=== PATIENT | female | born 1995 | race Caucasian/White ===

== ENCOUNTER 2018-12-23 22:36 | Emergency (ER) | payer OTHER, SELFPAY ==
[2018-12-23 22:42] VITALS: BP 150/91; PULSE 126; RESP 20; TEMP 36.6; O2SAT 100; BMI 23.9
[2018-12-23 23:07] VITALS: BP 131/80; PULSE 98; RESP 19; O2SAT 100
[2018-12-23 23:33] LABS: Add Manual Diff / Slide Review NO; Basophils Absolute Auto 100 /uL (0-100); Basophils Percent Auto 0.7 % (0-2); Eosinophils Absolute Auto 400 /uL (0-450); Eosinophils Percent Auto 3.6 % (2-4); Hematocrit 41.7 % (36-46); Hemoglobin 13.7 g/dL (12.0-16.0); Lymphocytes Absolute Auto 2400 /uL (1100-4500); Lymphocytes Percent Auto 20.2 % (25-40); Mean Corpuscular HGB Conc 32.9 % (30-36); Mean Corpuscular Volume 88.2 fL (80-100); Monocytes Absolute Auto 800 /uL (0-900); Monocytes Percent Auto 6.8 % (3-14); Neutrophils Absolute Auto 8300 /uL (1500-7000); Neutrophils Percent Auto 68.7 % (50-75); Platelet Count 252 X10^3/uL (150-400); Red Blood Cell Count 4.73 X10^6/uL (4.0-5.2); Red Cell Distribution Width 13.4 % (11.6-14.8); White Blood Cell Count 12.1 X10^3/uL (4.5-11.0)
[2018-12-23 23:39] LABS: Alanine Aminotransferase 24 IU/L (9-52); Albumin 4.8 g/dL (3.5-5.0); Albumin Globulin Ratio 1.5 (1.0-2.8); Alkaline Phosphatase 77 U/L (38-126); Aspartate Aminotransferase 23 IU/L (14-36); BUN Creatinine Ratio 21.4 (6-22); Bilirubin Total 0.4 mg/dL (0.2-1.3); Blood Urea Nitrogen 15 mg/dL (7-17); Calcium 9.9 mg/dL (8.4-10.2); Carbon Dioxide 24 mmol/L (22-32); Chloride 104 mmol/L (98-107); Creatine Kinase 68 U/L (30-135); Estimated Glomerular Filt Rate > 60.0 mL/min (>60); Globulin 3.3 g/dL (1.7-4.1); Glucose 108 mg/dL (70-100); HEMOLYSIS 19 (0-50); Potassium 3.6 mmol/L (3.4-5.1); Sodium 139 mmol/L (137-145); Total Protein 8.1 g/dL (6.3-8.2)
[2018-12-23] MEDS: SODIUM CHLORIDE 0.9% 1,000 ML 1000 ML IV (23:43)
[2018-12-23] MEDS: ONDANSETRON 4 MG/2 ML INJ IV (23:43)
[2018-12-23 23:49] VITALS: BP 119/71; PULSE 93; RESP 22; O2SAT 100
[2018-12-23 23:50] LABS: Troponin I < 0.012 ng/mL (0.01-0.034)
[2018-12-23 23:53] LABS: Influenza A and B by PCR Rapid Negative (Negative)
--- NOTE | 2018-12-23 23:54 | DI.RAD.S_ITS ---
PROCEDURE: XR CHEST 1V INDICATIONS: chest pain TECHNIQUE: One view of the chest was acquired. COMPARISON: None. FINDINGS: Surgical changes and devices: None. Lungs and pleura: Lungs are clear. No pleural effusions or pneumothorax. Mediastinum: Mediastinal contours appear normal. Heart size is normal. Bones and chest wall: No suspicious bony lesions. Overlying soft tissues appear unremarkable. IMPRESSION: No acute disease Dictated by: Dylan Wiseman M.D. on 12/24/2018 at 8:04 Approved by: Dylan Wiseman M.D. on 12/24/2018 at 8:06
--- NOTE | 2018-12-23 23:55 | ED.ARRPALP ---
HPI - Arrhythmia/Palpitations General Chief Complaint: Arrhythmia/Palpitations Stated Complaint: THROWING UP OUT OF IT Time Seen by Provider: 12/23/18 22:57 Source: patient Mode of arrival: ambulatory Limitations: no limitations History of Present Illness HPI narrative: patient is a 23-year-old female who presents with heart palpitations. His he says she feels like she has had head follow all day. She does drink caffeine diet Coke and coffee throughout the day. This never happens to her. She denies drinking any extra. She does have some shortness of breath. She had numbness in her left hand earlier today. She denies any fever or chills. She has noted to be tachycardic in the ED. Duration: constant Related Data Previous Rx's Medication Instructions Recorded sulfamethoxazole-trimethoprim 1 tab PO BID 5 Days #10 tab 12/24/18 [Bactrim DS] Allergies Allergy/AdvReac Type Severity Reaction Status Date / Time latex Allergy Rash Verified 12/23/18 22:48 Review of Systems Review of Systems ROS Unobtainable: All systems reviewed & are unremarkable except as noted in HPI and below Constitutional Denies chills, Denies fever(s), Denies lethargy and Denies weakness Cardiovascular Reports chest pain, Denies syncope, Reports rapid heart rate, Reports lightheadedness, Denies dyspnea and Denies dyspnea on exertion Respiratory Denies cough, Denies dyspnea, Denies dyspnea on exertion and Denies wheezing Gastrointestinal Gastrointestinal: Denies abdominal pain, Denies change in bowel habits, Denies diarrhea, Denies nausea and Denies vomiting Genitourinary Denies hematuria, Denies flank pain, Denies urinary incontinence and Denies urinary urgency Musculoskeletal Denies back pain, Denies muscle weakness, Denies numbness and Denies tingling Integumentary/Breasts Denies pruritus, Denies erythema, Denies rash and Denies wounds Neurologic Denies syncope, Denies numbness, Denies tingling and Denies weakness Allergic/Immunologic Denies wheezing [facility] Medical History Patient denies significant medical history (Acute) Social History Smoking Status: Never smoker Social History Smoking Status: Never smoker Exam Initial Vital Signs Initial Vital Signs: Vital Signs Temperature 97.9 F 12/23/18 22:42 Pulse Rate 126 H 12/23/18 22:42 Respiratory Rate 20 12/23/18 22:42 Blood Pressure 150/91 H 12/23/18 22:42 Pulse Oximetry 100 12/23/18 22:42 GENERAL: alert well-appearing young female no acute distress HEENT: Head atraumatic,EOMI, pupils reactive CARDIOVASCULAR: tachycardic regular no murmur RESPIRATORY: Breath sounds equal bilaterally, no wheezes rales or rhonchi. ABDOMEN: Soft, nontender. Normoactive bowel sounds all 4 quadrants. No guarding or rebound. EXTREMITIES: Normal range of motion, no clubbing or edema. Neurovascularly intact NEUROLOGICAL: Alert and oriented x4.Normal gait and speech. Cranial nerves II through XII grossly intact. orchid worker strength equal bilaterally SKIN: Warm, dry, no laceration, no petechiae, no rashes or lesions. Scores PERC Score Age greater than or equal to 50 years: No Heart rate greater than or equal to 100 bpm: Yes Room Air O2 Sat less than 95%: No Unilateral leg swelling: No Recent trauma or surgery: No Hemoptysis: No Prior PE or DVT: No Hormone Use: No Total PERC Score: 1 Course Orders Ordered: ED Orders 12/23/18 23:15 Complete Blood Count AUTO DIFF Stat Comprehensive Metabolic Panel Stat D Dimer Stat Influenza A and B by PCR Rapid Stat Troponin & CK Cardiac Panel Stat 12/23/18 23:54 XR chest 1V Stat 12/24/18 00:00 Thyroid Stimulating Hormone Stat 12/24/18 01:20 Urine Culture Stat Urine Microscopic Stat Discontinued Medications Sodium Chloride (Normal Saline 0.9%) 1,000 mls @ 1,000 mls/hr IV BOLUS ONE Stop: 12/24/18 00:26 Last Infusion: 12/24/18 00:55 Dose: 0 mls/hr Admin: 12/23/18 23:43 Dose: 1,000 mls/hr Ketorolac Tromethamine (Toradol) 30 mg IV NOW ONE Stop: 12/23/18 23:55 Last Admin: 12/24/18 00:00 Dose: 30 mg Ondansetron HCl (Zofran) 4 mg IV NOW ONE Stop: 12/23/18 23:29 Last Admin: 12/23/18 23:43 Dose: 4 mg Trimethoprim/Sulfamethoxazole (Bactrim Ds Prepack) 1 bottle MISC SEEINSTR ONE Stop: 12/24/18 01:24 Last Admin: 12/24/18 01:45 Dose: 1 bottle Vital Signs - 8 hr 12/23/18 22:42 12/23/18 23:07 12/23/18 23:49 Temperature 97.9 F Pulse Rate 126 H 98 H 93 H Respiratory Rate 20 19 22 Blood Pressure 150/91 H Blood Pressure [Left Arm] 131/80 119/71 Pulse Oximetry 100 100 100 12/24/18 01:06 12/24/18 01:52 Temperature Pulse Rate 90 92 H Respiratory Rate 12 16 Blood Pressure 125/75 Blood Pressure [Left Arm] 114/54 L Pulse Oximetry 99 99 MDM - Arrhythmia/Palpitations Lab Data Attestation: I reviewed the patient's lab results. Result diagrams: 12/23/18 23:15 12/23/18 23:15 Lab Results 12/23/18 12/23/18 12/23/18 Range/Units 23:15 23:15 23:15 WBC 12.1 H (4.5-11.0) X10^3/uL RBC 4.73 (4.0-5.2) X10^6/uL Hgb 13.7 (12.0-16.0) g/dL Hct 41.7 (36-46) % MCV 88.2 (80-100) fL MCH 29.0 (26-34) PG MCHC 32.9 (30-36) % RDW 13.4 (11.6-14.8) % Plt Count 252 (150-400) X10^3/uL Neut % (Auto) 68.7 (50-75) % Lymph % (Auto) 20.2 L (25-40) % [place] % (Auto) 6.8 (3-14) % Eos % (Auto) 3.6 (2-4) % Baso % (Auto) 0.7 (0-2) % Neut # (Auto) 8300 H (9702-6615) /uL Lymph # (Auto) 2400 (7102-1607) /uL [place] # (Auto) 800 (0-900) /uL Eos # (Auto) 400 (0-450) /uL Baso # (Auto) 100 (0-100) /uL D-Dimer (<230) ng/mL Sodium 139 (137-145) mmol/L Potassium 3.6 (3.4-5.1) mmol/L Chloride 104 (98-107) mmol/L Carbon Dioxide 24 (22-32) mmol/L BUN 15 (7-17) mg/dL Creatinine 0.70 (0.52-1.04) mg/dL Estimated GFR > 60.0 (>60) mL/min BUN/Creatinine Ratio 21.4 (6-22) Glucose 108 H (70-100) mg/dL Calcium 9.9 (8.4-10.2) mg/dL Total Bilirubin 0.4 (0.2-1.3) mg/dL AST 23 (14-36) IU/L ALT 24 (9-52) IU/L Alkaline Phosphatase 77 (38-126) U/L Total Creatine Kinase 68 (30-135) U/L CK-MB (CK-2) TNP CK-MB (CK-2) Rel Index TNP Troponin I < 0.012 (0.01-0.034) ng/mL Total Protein 8.1 (6.3-8.2) g/dL Albumin 4.8 (3.5-5.0) g/dL Globulin 3.3 (1.7-4.1) g/dL Albumin/Globulin Ratio 1.5 (1.0-2.8) TSH (0.47-4.68) uIU/mL Urine RBC (0-5/HPF) Urine WBC (0-5/HPF) Ur Squamous Epith Cells Urine Bacteria (None) Ur Culture Indicated? Influenza A & B (PCR) Negative (Negative) 12/23/18 12/23/18 12/24/18 Range/Units 23:15 23:15 01:20 WBC (4.5-11.0) X10^3/uL RBC (4.0-5.2) X10^6/uL Hgb (12.0-16.0) g/dL Hct (36-46) % MCV (80-100) fL MCH (26-34) PG MCHC (30-36) % RDW (11.6-14.8) % Plt Count (150-400) X10^3/uL Neut % (Auto) (50-75) % Lymph % (Auto) (25-40) % [place] % (Auto) (3-14) % Eos % (Auto) (2-4) % Baso % (Auto) (0-2) % Neut # (Auto) (8189-6195) /uL Lymph # (Auto) (7459-7352) /uL [place] # (Auto) (0-900) /uL Eos # (Auto) (0-450) /uL Baso # (Auto) (0-100) /uL D-Dimer 383 H (<230) ng/mL Sodium (137-145) mmol/L Potassium (3.4-5.1) mmol/L Chloride (98-107) mmol/L Carbon Dioxide (22-32) mmol/L BUN (7-17) mg/dL Creatinine (0.52-1.04) mg/dL Estimated GFR (>60) mL/min BUN/Creatinine Ratio (6-22) Glucose (70-100) mg/dL Calcium (8.4-10.2) mg/dL Total Bilirubin (0.2-1.3) mg/dL AST (14-36) IU/L ALT (9-52) IU/L Alkaline Phosphatase (38-126) U/L Total Creatine Kinase (30-135) U/L CK-MB (CK-2) CK-MB (CK-2) Rel Index Troponin I (0.01-0.034) ng/mL Total Protein (6.3-8.2) g/dL Albumin (3.5-5.0) g/dL Globulin (1.7-4.1) g/dL Albumin/Globulin Ratio (1.0-2.8) TSH 3.41 (0.47-4.68) uIU/mL Urine RBC 1-5/hpf (0-5/HPF) Urine WBC 1-5/hpf (0-5/HPF) Ur Squamous Epith Cells 1-5 /hpf Urine Bacteria Many (>30) H (None) Ur Culture Indicated? Specimen cultured Influenza A & B (PCR) (Negative) Point of Care Testing Test Results Negative Urine Dip Bedside Urine Glucose Negative Bedside Urine Bilirubin - Negative Bedside Urine Ketone - Negative Urine Specific [place] 1.020 Bedside Urine Occult Blood +/- Bedside Urine pH 6.0 Bedside Urine Protein - Negative Bedside Urine Urobilinogen +/- 1mg Bedside Urine Nitrite + Positive Bedside Urine Leukocytes +/- 15 Esterase ECG Data Attestation: I personally reviewed and interpreted this ECG as follows: Prior ECG tracings: not available for review Interpretation: sinus tachycardia rate 110 MDM Narrative Medical decision making narrative: patient's heart rate did actually improve with IV fluids and Toradol. His she does have leukocytes and bacteria in her urine. At this time will treat her for UTI think this is more likely rather than PE. D-dimer is less than 500 is and PERC is low. Patient states that she does have a urinary frequency and has for the last 2 days he denies any dysuria Discharge Plan Departure Patient Disposition: Home Clinical Impression: Palpitations UTI (urinary tract infection) Qualifiers: Urinary tract infection type: acute cystitis Hematuria presence: with hematuria Qualified Code(s): N30.01 - Acute cystitis with hematuria Discharge Date/Time: 12/24/18 01:53 Interventions: ED Discharge Assessment Last Done: 12/24/18 01:52 Instructions: DI for Palpitations Activity Restrictions/Additional Instructions: *You have been diagnosed with palpitations, UTI *What to do: thyroid was noted to be a little elevated recommend having it rechecked. blood work and x-ray otherwise are reassuring. Also consider decreasing caffeine intake *Continue to take medications as directed - Bactrim 1 tablet twice a day for 5 days *Follow up with your primary care provider in 2-3 days *Return to ER if you should have increasing chest pain and passing out or any new, worsening or concerning symptoms Prescriptions: New sulfamethoxazole-trimethoprim [Bactrim DS] 800-160 mg tablet 1 tab PO BID 5 Days Qty: 10 RF: 0 Referrals: [facility] [Provider Group] [facility] [Provider Group] [facility] [Provider Group] [facility] [Provider Group]
[2018-12-24] MEDS: KETOROLAC 60 MG/2 ML VIAL 30 MG IV
--- NOTE | 2018-12-24 | ED_ITS ---
HPI - Arrhythmia/Palpitations General Chief Complaint: Arrhythmia/Palpitations Stated Complaint: THROWING UP OUT OF IT Time Seen by Provider: 12/23/18 22:57 Source: patient Mode of arrival: ambulatory Limitations: no limitations History of Present Illness HPI narrative: patient is a 23-year-old female who presents with heart palpitations. His he says she feels like she has had head follow all day. She does drink caffeine diet Coke and coffee throughout the day. This never happens to her. She denies drinking any extra. She does have some shortness of breath. She had numbness in her left hand earlier today. She denies any fever or chills. She has noted to be tachycardic in the ED. Duration: constant Related Data Previous Rx's Medication Instructions Recorded sulfamethoxazole-trimethoprim 1 tab PO BID 5 Days #10 tab 12/24/18 [Bactrim DS] Allergies Allergy/AdvReac Type Severity Reaction Status Date / Time latex Allergy Rash Verified 12/23/18 22:48 Review of Systems Review of Systems ROS Unobtainable: All systems reviewed & are unremarkable except as noted in HPI and below Constitutional Denies chills, Denies fever(s), Denies lethargy and Denies weakness Cardiovascular Reports chest pain, Denies syncope, Reports rapid heart rate, Reports li ghtheadedness, Denies dyspnea and Denies dyspnea on exertion Respiratory Denies cough, Denies dyspnea, Denies dyspnea on exertion and Denies wheezing Gastrointestinal Gastrointestinal: Denies abdominal pain, Denies change in bowel habits, Denies diarrhea, Denies nausea and Denies vomiting Genitourinary Denies hematuria, Denies flank pain, Denies urinary incontinence and Denies urinary urgency Musculoskeletal Denies back pain, Denies muscle weakness, Denies numbness and Denies tingling Integumentary/Breasts Denies pruritus, Denies erythema, Denies rash and Denies wounds Neurologic Denies syncope, Denies numbness, Denies tingling and Denies weakness Allergic/Immunologic Denies wheezing [facility] Medical History Patient denies significant medical history (Acute) Social History Smoking Status: Never smoker Social History Smoking Status: Never smoker Exam Initial Vital Signs Initial Vital Signs: Vital Signs Temperature 97.9 F 12/23/18 22:42 Pulse Rate 126 H 12/23/18 22:42 Respiratory Rate 20 12/23/18 22:42 Blood Pressure 150/91 H 12/23/18 22:42 Pulse Oximetry 100 12/23/18 22:42 GENERAL: alert well-appearing young female no acute distress HEENT: Head atraumatic,EOMI, pupils reactive CARDIOVASCULAR: tachycardic regular no murmur RESPIRATORY: Breath sounds equal bilaterally, no wheezes rales or rhonchi. ABDOMEN: Soft, nontender. Normoactive bowel sounds all 4 quadrants. No guarding or rebound. EXTREMITIES: Normal range of motion, no clubbing or edema. Neurovascularly intact NEUROLOGICAL: Alert and oriented x4.Normal gait and speech. Cranial nerves II through XII grossly intact. parachute marker strength equal bilaterally SKIN: Warm, dry, no laceration, no petechiae, no rashes or lesions. Scores PERC Score Age greater than or equal to 50 years: No Heart rate greater than or equal to 100 bpm: Yes Room Air O2 Sat less than 95%: No Unilateral leg swelling: No Recent trauma or surgery: No Hemoptysis: No Prior PE or DVT: No Hormone Use: No Total PERC Score: 1 Course Orders Ordered: ED Orders 12/23/18 23:15 Complete Blood Count AUTO DIFF Stat Comprehensive Metabolic Panel Stat D Dimer Stat Influenza A and B by PCR Rapid Stat Troponin & CK Cardiac Panel Stat 12/23/18 23:54 XR chest 1V Stat 12/24/18 00:00 Thyroid Stimulating Hormone Stat 12/24/18 01:20 Urine Culture Stat Urine Microscopic Stat Discontinued Medications Sodium Chloride (Normal Saline 0.9%) 1,000 mls @ 1,000 mls/hr IV BOLUS ONE Stop: 12/24/18 00:26 Last Infusion: 12/24/18 00:55 Dose: 0 mls/hr Admin: 12/23/18 23:43 Dose: 1,000 mls/hr Ketorolac Tromethamine (Toradol) 30 mg IV NOW ONE Stop: 12/23/18 23:55 Last Admin: 12/24/18 00:00 Dose: 30 mg Ondansetron HCl (Zofran) 4 mg IV NOW ONE Stop: 12/23/18 23:29 Last Admin: 12/23/18 23:43 Dose: 4 mg Trimethoprim/Sulfamethoxazole (Bactrim Ds Prepack) 1 bottle MISC SEEINSTR ONE Stop: 12/24/18 01:24 Last Admin: 12/24/18 01:45 Dose: 1 bottle Vital Signs - 8 hr 12/23/18 22:42 12/23/18 23:07 12/23/18 23:49 Temperature 97.9 F Pulse Rate 126 H 98 H 93 H Respiratory Rate 20 19 22 Blood Pressure 150/91 H Blood Pressure [Left Arm] 131/80 119/71 Pulse Oximetry 100 100 100 12/24/18 01:06 12/24/18 01:52 Temperature Pulse Rate 90 92 H Respiratory Rate 12 16 Blood Pressure 125/75 Blood Pressure [Left Arm] 114/54 L Pulse Oximetry 99 99 MDM - Arrhythmia/Palpitations Lab Data Attestation: I reviewed the patient's lab results. Result diagrams: 12/23/18 23:15 12/23/18 23:15 Lab Results 12/23/18 12/23/18 12/23/18 Range/Units 23:15 23:15 23:15 WBC 12.1 H (4.5-11.0) X10^3/uL RBC 4.73 (4.0-5.2) X10^6/uL Hgb 13.7 (12.0-16.0) g/dL Hct 41.7 (36-46) % MCV 88.2 (80-100) fL MCH 29.0 (26-34) PG MCHC 32.9 (30-36) % RDW 13.4 (11.6-14.8) % Plt Count 252 (150-400) X10^3/uL Neut % (Auto) 68.7 (50-75) % Lymph % (Auto) 20.2 L (25-40) % [place] % (Auto) 6.8 (3-14) % Eos % (Auto) 3.6 (2-4) % Baso % (Auto) 0.7 (0-2) % Neut # (Auto) 8300 H (6129-9328) /uL Lymph # (Auto) 2400 (7147-4167) /uL [place] # (Auto) 800 (0-900) /uL Eos # (Auto) 400 (0-450) /uL Baso # (Auto) 100 (0-100) /uL D-Dimer (<230) ng/mL Sodium 139 (137-145) mmol/L Potassium 3.6 (3.4-5.1) mmol/L Chloride 104 (98-107) mmol/L Carbon Dioxide 24 (22-32) mmol/L BUN 15 (7-17) mg/dL Creatinine 0.70 (0.52-1.04) mg/dL Estimated GFR > 60.0 (>60) mL/min BUN/Creatinine Ratio 21.4 (6-22) Glucose 108 H (70-100) mg/dL Calcium 9.9 (8.4-10.2) mg/dL Total Bilirubin 0.4 (0.2-1.3) mg/dL AST 23 (14-36) IU/L ALT 24 (9-52) IU/L Alkaline Phosphatase 77 (38-126) U/L Total Creatine Kinase 68 (30-135) U/L CK-MB (CK-2) TNP CK-MB (CK-2) Rel Index TNP Troponin I < 0.012 (0.01-0.034) ng/mL Total Protein 8.1 (6.3-8.2) g/dL Albumin 4.8 (3.5-5.0) g/dL Globulin 3.3 (1.7-4.1) g/dL Albumin/Globulin Ratio 1.5 (1.0-2.8) TSH (0.47-4.68) uIU/mL Urine RBC (0-5/HPF) Urine WBC (0-5/HPF) Ur Squamous Epith Cells Urine Bacteria (None) Ur Culture Indicated? Influenza A & B (PCR) Negative (Negative) 12/23/18 12/23/18 12/24/18 Range/Units 23:15 23:15 01:20 WBC (4.5-11.0) X10^3/uL RBC (4.0-5.2) X10^6/uL Hgb (12.0-16.0) g/dL Hct (36-46) % MCV (80-100) fL MCH (26-34) PG MCHC (30-36) % RDW (11.6-14.8) % Plt Count (150-400) X10^3/uL Neut % (Auto) (50-75) % Lymph % (Auto) (25-40) % [place] % (Auto) (3-14) % Eos % (Auto) (2-4) % Baso % (Auto) (0-2) % Neut # (Auto) (5560-5912) /uL Lymph # (Auto) (2147-1876) /uL [place] # (Auto) (0-900) /uL Eos # (Auto) (0-450) /uL Baso # (Auto) (0-100) /uL D-Dimer 383 H (<230) ng/mL Sodium (137-145) mmol/L Potassium (3.4-5.1) mmol/L Chloride (98-107) mmol/L Carbon Dioxide (22-32) mmol/L BUN (7-17) mg/dL Creatinine (0.52-1.04) mg/dL Estimated GFR (>60) mL/min BUN/Creatinine Ratio (6-22) Glucose (70-100) mg/dL Calcium (8.4-10.2) mg/dL Total Bilirubin (0.2-1.3) mg/dL AST (14-36) IU/L ALT (9-52) IU/L Alkaline Phosphatase (38-126) U/L Total Creatine Kinase (30-135) U/L CK-MB (CK-2) CK-MB (CK-2) Rel Index Troponin I (0.01-0.034) ng/mL Total Protein (6.3-8.2) g/dL Albumin (3.5-5.0) g/dL Globulin (1.7-4.1) g/dL Albumin/Globulin Ratio (1.0-2.8) TSH 3.41 (0.47-4.68) uIU/mL Urine RBC 1-5/hpf (0-5/HPF) Urine WBC 1-5/hpf (0-5/HPF) Ur Squamous Epith Cells 1-5 /hpf Urine Bacteria Many (>30) H (None) Ur Culture Indicated? Specimen cultured Influenza A & B (PCR) (Negative) Point of Care Testing Test Results Negative Urine Dip Bedside Urine Glucose Negative Bedside Urine Bilirubin - Negative Bedside Urine Ketone - Negative Urine Specific [place] 1.020 Bedside Urine Occult Blood +/- Bedside Urine pH 6.0 Bedside Urine Protein - Negative Bedside Urine Urobilinogen +/- 1mg Bedside Urine Nitrite + Positive Bedside Urine Leukocytes +/- 15 Esterase ECG Data Attestation: I personally reviewed and interpreted this ECG as follows: Prior ECG tracings: not available for review Interpretation: sinus tachycardia rate 110 MDM Narrative Medical decision making narrative: patient's heart rate did actually improve with IV fluids and Toradol. His she does have leukocytes and bacteria in her urine. At this time will treat her for UTI think this is more likely rather than PE. D-dimer is less than 500 is and PERC is low. Patient states that she does have a urinary frequency and has for the last 2 days he denies any dysuria Discharge Plan Departure Patient Disposition: Home Clinical Impression: Palpitations UTI (urinary tract infection) Qualifiers: Urinary tract infection type: acute cystitis Hematuria presence: with hematuria Qualified Code(s): N30.01 - Acute cystitis with hematuria Discharge Date/Time: 12/24/18 01:53 Interventions: ED Discharge Assessment Last Done: 12/24/18 01:52 Instructions: DI for Palpitations Activity Restrictions/Additional Instructions: *You have been diagnosed with palpitations, UTI *What to do: thyroid was noted to be a little elevated recommend having it rechecked. blood work and x-ray otherwise are reassuring. Also consider decreasing caffeine intake *Continue to take medications as directed - Bactrim 1 tablet twice a day for 5 days *Follow up with your primary care provider in 2-3 days *Return to ER if you should have increasing chest pain and passing out or any new, worsening or concerning symptoms Prescriptions: New sulfamethoxazole-trimethoprim [Bactrim DS] 800-160 mg tablet 1 tab PO BID 5 Days Qty: 10 RF: 0 Referrals: [facility] [Provider Group] [facility] [Provider Group] [facility] [Provider Group] [facility] [Provider Group]
[2018-12-24 00:15] LABS: D Dimer 383 ng/mL (<230)
[2018-12-24 00:51] LABS: Thyroid Stimulating Hormone 3.41 uIU/mL (0.47-4.68)
[2018-12-24 01:06] VITALS: BP 114/54; PULSE 90; RESP 12; O2SAT 99
[2018-12-24 01:35] LABS: Bacteria Urine Many (>30); Culture Indicated Urine Specimen Cultured; RBC Urine 1-5/HPF (0-5/HPF); Squamous Epithelial Cell Urine 1-5 /HPF; WBC Urine 1-5/HPF (0-5/HPF)
[2018-12-24] MEDS: TRIMETH/SULFA 160/800 PREPACK 1 BOTTLE MISC (01:45)
[2018-12-24 01:52] VITALS: BP 125/75; PULSE 92; RESP 16; O2SAT 99
== END 2018-12-24 01:53 | disposition home or self-care (01) ==
PROVIDERS: Emergency Provider Emergency Medicine
DX: N30.01 Acute cystitis with hematuria (principal); R00.2 Palpitations
CPT/HCPCS: 36591; 71045; 80053; 81003; 81015; 81025; 82550; 84443; 84484; 85025; 85379; 87077; 87086; 87186; 87400; 93005; 93041; 96361; 96374; 96375; 99284; 99285; J1885; J2405

== ENCOUNTER → 2019-12-12 10:51 | Outpatient (CLI) | payer OTHER, SELFPAY ==
--- NOTE | 2019-12-12 10:53 | DI.RAD.S_ITS ---
PROCEDURE: XR FOOT LT MIN 3V INDICATIONS: L foot injury TECHNIQUE: 3 views of the foot were acquired. COMPARISON: [facility], CR, XR ANKLE LT MIN 3V, 12/12/2019, 10:47. FINDINGS: Bones: No fractures or dislocations. No suspicious bony lesions. No significant degenerative changes are identified. Bone mineralization is within normal limits. Soft tissues: No significant tibiotalar joint effusion. The overlying soft tissues of the foot are unremarkable. IMPRESSION: No acute osseous abnormality of the left foot. Dictated by: Kiko Ogden M.D. on 12/12/2019 at 10:38 Approved by: Kiko Ogden M.D. on 12/12/2019 at 10:41
--- NOTE | 2019-12-12 10:53 | DI.RAD.S_ITS ---
PROCEDURE: XR ANKLE LT MIN 3V INDICATIONS: l ankle pain TECHNIQUE: 3 views of the ankle were acquired. COMPARISON: [facility], CR, XR FOOT LT MIN 3V, 12/12/2019, 10:47. FINDINGS: Bones: No fractures or dislocations. Ankle mortise is normally aligned. No suspicious bony lesions. Soft tissues: No tibiotalar joint effusion. Achilles tendon appears normal. IMPRESSION: No acute osseous abnormality of the left ankle is evident. Dictated by: Kiko Ogden M.D. on 12/12/2019 at 10:22 Approved by: Kiko Ogden M.D. on 12/12/2019 at 10:37
== END ==
PROVIDERS: Referring Provider Physician Assistant; Visit Provider Physician Assistant
DX: M79.672 Pain in left foot (principal); M25.572 Pain in left ankle and joints of left foot; S99.922A Unspecified injury of left foot, initial encounter; X58.XXXA Exposure to other specified factors, initial encounter
CPT/HCPCS: 73610; 73630

== ENCOUNTER 2020-12-01 15:07 | Emergency (ER) | payer OTHER, SELFPAY ==
[2020-12-01 15:16] VITALS: BP 182/104; PULSE 124; RESP 25; TEMP 36.2; O2SAT 100
[2020-12-01 16:39] VITALS: PULSE 110; RESP 25
[2020-12-01] MEDS: hydrOXYzine pamoate 25 MG CAPSULE 50 MG PO (16:40)
--- NOTE | 2020-12-01 17:23 | ED_ITS ---
HPI - Anxiety <Sarita De Leon DO - Last Filed: 12/02/20 07:13> General Chief Complaint: Anxiety Stated Complaint: panic attack Time Seen by Provider: 12/01/20 17:17 Source: patient Mode of arrival: Ambulatory History of Present Illness HPI narrative: This is a 25-year-old female comes emergency department complaint of panic attack. She states she woke up feeling this way at 7:00 a.m.. She has continued to have symptoms. She states she has got the sweats, she has felt nauseated. She did vomit here in the emergency department after trying to take a p.o. hydroxyzine. She had some chest pressure, she felt short of breath. She feels tingly all over. Her stomach feels much better after she vomited. She de nies any abdominal pain prior too. She has not had any major urinary symptoms, no major GI symptoms. She denies any swelling in her extremities. She takes bupropion daily. She has not had any new medications or medication dose changes. She does follow up primary care and counselor for her anxiety. Symptoms feel somewhat similar except for she felt very dizzy and almost like she was going to lose vision. She states otherwise her symptoms were similar today. She denies any allergies other than latex. She is accompanied by her . Related Data Home Medications Medication Instructions Recorded Confirmed bupropion HCl 150 mg PO QAM 12/01/20 12/01/20 Previous Rx's Medication Instructions Recorded cephalexin [Keflex] 500 mg PO BID #10 cap 12/01/20 Allergies Allergy/AdvReac Type Severity Reaction Status Date / Time latex Allergy Rash Verified 12/01/20 15:22 Review of Systems <Sarita De Leon DO - Last Filed: 12/02/20 07:13> Review of Systems ROS Unobtainable: All systems reviewed & are unremarkable except as noted in HPI and below Patient History <Sarita De Leon DO - Last Filed: 12/02/20 07:13> Medical History (Updated 12/01/20 @ 19:43 by Sarita De Leon DO) Patient denies significant medical history Social History Smoking Status: Never smoker Smoking Status: Never smoker alcohol intake frequency: 0-2 drinks per day Substance Use Type: does not use Exam <Sarita De Leon DO - Last Filed: 12/02/20 07:13> Narrative Exam Narrative: GENERAL: Alert and oriented x three, well-nourished, well- appearing female in mild distress. HEENT: Head normocephalic, atraumatic, EOMI, pupils reactive, face symmetric, moist mucous membranes NECK: Supple, full range of motion CARDIOVASCULAR: Tachycardic but Regular rate and rhythm without murmurs, rubs or gallops. No JVD. No swelling bilateral lower extremities. RESPIRATORY: Breath sounds equal bilaterally, no wheezes rales or rhonchi. No tachypnea. No accessory muscle use. Speaks in full sentences. ABDOMEN: Soft, nontender. Normoactive bowel sounds all 4 quadrants. No guarding or rebound, rigidity, no mass : No CVA tenderness EXTREMITIES: Normal range of motion, no clubbing or edema. Neurovascularly intact NEUROLOGICAL: Cranial nerves II through XII grossly intact. Moving all extremities SKIN: Warm, dry, no petechiae, no rashes or lesions. Initial Vital Signs Initial Vital Signs: Vital Signs Temperature 97.1 F L 12/01/20 15:16 Pulse Rate 124 H 12/01/20 15:16 Respiratory Rate 25 H 12/01/20 15:16 Blood Pressure 182/104 H 12/01/20 15:16 Pulse Oximetry 100 12/01/20 15:16 <Asher Downing DO - Last Filed: 12/01/20 23:20> Initial Vital Signs Initial Vital Signs: Vital Signs Temperature 97.1 F L 12/01/20 15:16 Pulse Rate 124 H 12/01/20 15:16 Respiratory Rate 25 H 12/01/20 15:16 Blood Pressure 182/104 H 12/01/20 15:16 Pulse Oximetry 100 12/01/20 15:16 Course <Sarita De Leon DO - Last Filed: 12/02/20 07:13> Orders Ordered: Discontinued Medications Alprazolam (Alprazolam 0.5 Mg Tablet) 0.5 mg PO NOW ONE Stop: 12/01/20 17:33 Last Admin: 12/01/20 17:40 Dose: 0.5 mg Documented by: NEDA Cephalexin HCl (Cephalexin 250 Mg Capsule) 500 mg PO NOW ONE Stop: 12/01/20 19:44 Last Admin: 12/01/20 19:56 Dose: 500 mg Documented by: AUGUSTINE Hydroxyzine Pamoate (Hydroxyzine Pamoate 25 Mg Capsule) 50 mg PO NOW ONE Stop: 12/01/20 16:35 Last Admin: 12/01/20 16:40 Dose: 50 mg Documented by: AUGUSTINE Sodium Chloride (Normal Saline 0.9%) 1,000 mls @ 1,000 mls/hr IV BOLUS ONE Stop: 12/01/20 18:51 Last Infusion: 12/01/20 20:06 Dose: 0 mls/hr Documented by: Admin: 12/01/20 18:22 Dose: 1,000 mls/hr Documented by: AUGUSTINE Lorazepam (Lorazepam 2 Mg/Ml Inj) 0.5 mg IV NOW ONE Stop: 12/01/20 18:10 Last Admin: 12/01/20 18:21 Dose: 0.5 mg Documented by: AUGUSTINE Ondansetron HCl (Ondansetron 4 Mg Odt) 4 mg PO NOW ONE Stop: 12/01/20 17:33 Last Admin: 12/01/20 17:40 Dose: 4 mg Documented by: NEDA Ondansetron HCl (Ondansetron 4 Mg/2 Ml Inj) 4 mg IV NOW ONE Stop: 12/01/20 17:53 Last Admin: 12/01/20 18:21 Dose: 4 mg Documented by: AUGUSTINE Vital Signs Vital signs: Vital Signs - 8 hr 12/01/20 16:39 12/01/20 21:12 Pulse Rate 110 H 100 H Respiratory Rate 25 H 16 Blood Pressure 141/90 H Pulse Oximetry 97 <Ashre Downing DO - Last Filed: 12/01/20 23:20> Orders Ordered: Discontinued Medications Alprazolam (Alprazolam 0.5 Mg Tablet) 0.5 mg PO NOW ONE Stop: 12/01/20 17:33 Last Admin: 12/01/20 17:40 Dose: 0.5 mg Documented by: NEDA Cephalexin HCl (Cephalexin 250 Mg Capsule) 500 mg PO NOW ONE Stop: 12/01/20 19:44 Last Admin: 12/01/20 19:56 Dose: 500 mg Documented by: AUGUSTINE Hydroxyzine Pamoate (Hydroxyzine Pamoate 25 Mg Capsule) 50 mg PO NOW ONE Stop: 12/01/20 16:35 Last Admin: 12/01/20 16:40 Dose: 50 mg Documented by: AUGUSTINE Sodium Chloride (Normal Saline 0.9%) 1,000 mls @ 1,000 mls/hr IV BOLUS ONE Stop: 12/01/20 18:51 Last Infusion: 12/01/20 20:06 Dose: 0 mls/hr Documented by: Admin: 12/01/20 18:22 Dose: 1,000 mls/hr Documented by: AUGUSTINE Lorazepam (Lorazepam 2 Mg/Ml Inj) 0.5 mg IV NOW ONE Stop: 12/01/20 18:10 Last Admin: 12/01/20 18:21 Dose: 0.5 mg Documented by: AUGUSTINE Ondansetron HCl (Ondansetron 4 Mg Odt) 4 mg PO NOW ONE Stop: 12/01/20 17:33 Last Admin: 12/01/20 17:40 Dose: 4 mg Documented by: NEDA Ondansetron HCl (Ondansetron 4 Mg/2 Ml Inj) 4 mg IV NOW ONE Stop: 12/01/20 17:53 Last Admin: 12/01/20 18:21 Dose: 4 mg Documented by: AUGUSTINE Vital Signs Vital signs: Vital Signs - 8 hr 12/01/20 16:39 12/01/20 21:12 Pulse Rate 110 H 100 H Respiratory Rate 25 H 16 Blood Pressure 141/90 H Pulse Oximetry 97 MDM - Anxiety <Sarita De Leon DO - Last Filed: 12/02/20 07:13> Lab Data Result diagrams: 12/01/20 18:20 12/01/20 18:15 Labs: Lab Results 12/01/20 12/01/20 12/01/20 Range/Units 18:15 18:15 18:15 WBC (4.5-11.0) X10^3/uL RBC (4.0-5.2) X10^6/uL Hgb (12.0-16.0) g/dL Hct (36-46) % MCV (80-100) fL MCH (26-34) PG MCHC (30-36) % RDW (11.6-14.8) % Plt Count (150-400) X10^3/uL Neut % (Auto) (50-75) % Lymph % (Auto) (25-40) % [place] % (Auto) (3-14) % Eos % (Auto) (2-4) % Baso % (Auto) (0-2) % Neut # (Auto) (4807-1613) /uL Lymph # (Auto) (1481-4736) /uL [place] # (Auto) (0-900) /uL Eos # (Auto) (0-450) /uL Baso # (Auto) (0-100) /uL D-Dimer 262 H (<230) ng/mL Sodium 136 L (137-145) mmol/L Potassium 4.2 (3.4-5.1) mmol/L Chloride 104 (98-107) mmol/L Carbon Dioxide 24 (22-32) mmol/L BUN 14 (7-17) mg/dL Creatinine 0.69 (0.52-1.04) mg/dL Estimated GFR > 60.0 (>60) mL/min BUN/Creatinine Ratio 20.3 (6-22) Glucose 98 (70-100) mg/dL Calcium 9.5 (8.4-10.2) mg/dL Total Bilirubin 0.5 (0.2-1.3) mg/dL AST 58 H (14-36) IU/L ALT 57 H (<35) IU/L Alkaline Phosphatase 121 (38-126) U/L Troponin I < 0.012 (0.01-0.034) ng/mL Total Protein 8.0 (6.3-8.2) g/dL Albumin 4.6 (3.5-5.0) g/dL Globulin 3.4 (1.7-4.1) g/dL Albumin/Globulin Ratio 1.4 (1.0-2.8) TSH 0.941 (0.47-4.68) uIU/mL Urine RBC (0-5/HPF) Urine WBC (0-5/HPF) Ur Squamous Epith Cells (0-5/HPF) Urine Bacteria (None) Ur Culture Indicated? U Opiates 300ng/mL cut (Negative) Ur Oxycodone Screen (Negative) Urine Methadone Screen (Negative) Ur Barbiturates Screen (Negative) U Tricyclic Antidepress (Negative) Ur Phencyclidine Scrn (Negative) Ur Amphetamines Screen (Negative) U Methamphetamines Scrn (Negative) Ur MDMA Scrn (Ecstasy) (Negative) U Benzodiazepines Scrn (Negative) Urine Cocaine Screen (Negative) U Marijuana (THC) Screen (Negative) 12/01/20 12/01/20 12/01/20 Range/Units 18:20 18:34 18:34 WBC 11.2 H (4.5-11.0) X10^3/uL RBC 4.78 (4.0-5.2) X10^6/uL Hgb 14.3 (12.0-16.0) g/dL Hct 43.5 (36-46) % MCV 91.0 (80-100) fL MCH 29.8 (26-34) PG MCHC 32.8 (30-36) % RDW 14.7 (11.6-14.8) % Plt Count 267 (150-400) X10^3/uL Neut % (Auto) 80.4 H (50-75) % Lymph % (Auto) 12.1 L (25-40) % [place] % (Auto) 6.3 (3-14) % Eos % (Auto) 0.7 L (2-4) % Baso % (Auto) 0.5 (0-2) % Neut # (Auto) 9000 H (9420-2380) /uL Lymph # (Auto) 1400 (0836-6332) /uL [place] # (Auto) 700 (0-900) /uL Eos # (Auto) 100 (0-450) /uL Baso # (Auto) 100 (0-100) /uL D-Dimer (<230) ng/mL Sodium (137-145) mmol/L Potassium (3.4-5.1) mmol/L Chloride (98-107) mmol/L Carbon Dioxide (22-32) mmol/L BUN (7-17) mg/dL Creatinine (0.52-1.04) mg/dL Estimated GFR (>60) mL/min BUN/Creatinine Ratio (6-22) Glucose (70-100) mg/dL Calcium (8.4-10.2) mg/dL Total Bilirubin (0.2-1.3) mg/dL AST (14-36) IU/L ALT (<35) IU/L Alkaline Phosphatase (38-126) U/L Troponin I (0.01-0.034) ng/mL Total Protein (6.3-8.2) g/dL Albumin (3.5-5.0) g/dL Globulin (1.7-4.1) g/dL Albumin/Globulin Ratio (1.0-2.8) TSH (0.47-4.68) uIU/mL Urine RBC 5-10/hpf H (0-5/HPF) Urine WBC 10-30/hpf H (0-5/HPF) Ur Squamous Epith Cells 0-1 /hpf (0-5/HPF) Urine Bacteria Many (>30) H (None) Ur Culture Indicated? Specimen cultured U Opiates 300ng/mL cut Negative (Negative) Ur Oxycodone Screen Negative (Negative) Urine Methadone Screen Negative (Negative) Ur Barbiturates Screen Negative (Negative) U Tricyclic Antidepress Negative (Negative) Ur Phencyclidine Scrn Negative (Negative) Ur Amphetamines Screen Negative (Negative) U Methamphetamines Scrn Negative (Negative) Ur MDMA Scrn (Ecstasy) Negative (Negative) U Benzodiazepines Scrn Negative (Negative) Urine Cocaine Screen Negative (Negative) U Marijuana (THC) Screen Negative (Negative) Point of Care Testing Test Results Negative Urine Dip Bedside Urine Glucose Negative Bedside Urine Bilirubin - Negative Bedside Urine Ketone + 15 Urine Specific [place] 1.015 Bedside Urine Occult Blood +++ Bedside Urine pH 6.0 Bedside Urine Protein - Negative Bedside Urine Urobilinogen - Negative Bedside Urine Nitrite + Positive Bedside Urine Leukocytes ++ 125 Esterase Imaging Data Chest x-ray: Radiologist's Impression: [address] [id number] ReportSigned Patient: Adrianna Neal KMR#: [id number]: 1995Acct:[id number]/Sex: 25 / FDate of Service: 12/01/20Loc: EDAccession Number: [id number] Procedure: XR chest 1V Ordering Provider: Sarita De Leon D.O. PROCEDURE: XR CHEST 1V INDICATIONS: anxiety TECHNIQUE: One view of the chest was acquired. COMPARISON: [facility], , XR CHEST 1V, 12/23/2018, 23:59. FINDINGS: Surgical changes and devices: None. Lungs and pleura: Lungs are clear. No pleural effusions or pneumothorax. Mediastinum: Mediastinal contours appear normal. Heart size is normal. Bones and chest wall: No suspicious bony lesions. Overlying soft tissues appear unremarkable. IMPRESSION: No acute cardiopulmonary disease process. Dictated by: Agnes Bronson MD, PhD on 12/01/2020 at 16:41 Approved by: Agnes Bronson MD, PhD on 12/01/2020 at 16:48 ECG Data Attestation: I personally reviewed and interpreted this ECG as follows: Interpretation: Sinus tachycardia, rate of 112, NC 96 QRS of 94 QTC 377. Nonspecific change. Patient has prior EKG from 12/23/18 which appears similar to todays. <Asher Downing, DO - Last Filed: 12/01/20 23:20> Lab Data Labs: Lab Results 12/01/20 12/01/20 12/01/20 Range/Units 18:15 18:15 18:15 WBC (4.5-11.0) X10^3/uL RBC (4.0-5.2) X10^6/uL Hgb (12.0-16.0) g/dL Hct (36-46) % MCV (80-100) fL MCH (26-34) PG MCHC (30-36) % RDW (11.6-14.8) % Plt Count (150-400) X10^3/uL Neut % (Auto) (50-75) % Lymph % (Auto) (25-40) % [place] % (Auto) (3-14) % Eos % (Auto) (2-4) % Baso % (Auto) (0-2) % Neut # (Auto) (7372-9397) /uL Lymph # (Auto) (3300-4099) /uL [place] # (Auto) (0-900) /uL Eos # (Auto) (0-450) /uL Baso # (Auto) (0-100) /uL D-Dimer 262 H (<230) ng/mL Sodium 136 L (137-145) mmol/L Potassium 4.2 (3.4-5.1) mmol/L Chloride 104 (98-107) mmol/L Carbon Dioxide 24 (22-32) mmol/L BUN 14 (7-17) mg/dL Creatinine 0.69 (0.52-1.04) mg/dL Estimated GFR > 60.0 (>60) mL/min BUN/Creatinine Ratio 20.3 (6-22) Glucose 98 (70-100) mg/dL Calcium 9.5 (8.4-10.2) mg/dL Total Bilirubin 0.5 (0.2-1.3) mg/dL AST 58 H (14-36) IU/L ALT 57 H (<35) IU/L Alkaline Phosphatase 121 (38-126) U/L Troponin I < 0.012 (0.01-0.034) ng/mL Total Protein 8.0 (6.3-8.2) g/dL Albumin 4.6 (3.5-5.0) g/dL Globulin 3.4 (1.7-4.1) g/dL Albumin/Globulin Ratio 1.4 (1.0-2.8) TSH 0.941 (0.47-4.68) uIU/mL Urine RBC (0-5/HPF) Urine WBC (0-5/HPF) Ur Squamous Epith Cells (0-5/HPF) Urine Bacteria (None) Ur Culture Indicated? U Opiates 300ng/mL cut (Negative) Ur Oxycodone Screen (Negative) Urine Methadone Screen (Negative) Ur Barbiturates Screen (Negative) U Tricyclic Antidepress (Negative) Ur Phencyclidine Scrn (Negative) Ur Amphetamines Screen (Negative) U Methamphetamines Scrn (Negative) Ur MDMA Scrn (Ecstasy) (Negative) U Benzodiazepines Scrn (Negative) Urine Cocaine Screen (Negative) U Marijuana (THC) Screen (Negative) 12/01/20 12/01/20 12/01/20 Range/Units 18:20 18:34 18:34 WBC 11.2 H (4.5-11.0) X10^3/uL RBC 4.78 (4.0-5.2) X10^6/uL Hgb 14.3 (12.0-16.0) g/dL Hct 43.5 (36-46) % MCV 91.0 (80-100) fL MCH 29.8 (26-34) PG MCHC 32.8 (30-36) % RDW 14.7 (11.6-14.8) % Plt Count 267 (150-400) X10^3/uL Neut % (Auto) 80.4 H (50-75) % Lymph % (Auto) 12.1 L (25-40) % [place] % (Auto) 6.3 (3-14) % Eos % (Auto) 0.7 L (2-4) % Baso % (Auto) 0.5 (0-2) % Neut # (Auto) 9000 H (0016-6246) /uL Lymph # (Auto) 1400 (6528-4390) /uL [place] # (Auto) 700 (0-900) /uL Eos # (Auto) 100 (0-450) /uL Baso # (Auto) 100 (0-100) /uL D-Dimer (<230) ng/mL Sodium (137-145) mmol/L Potassium (3.4-5.1) mmol/L Chloride (98-107) mmol/L Carbon Dioxide (22-32) mmol/L BUN (7-17) mg/dL Creatinine (0.52-1.04) mg/dL Estimated GFR (>60) mL/min BUN/Creatinine Ratio (6-22) Glucose (70-100) mg/dL Calcium (8.4-10.2) mg/dL Total Bilirubin (0.2-1.3) mg/dL AST (14-36) IU/L ALT (<35) IU/L Alkaline Phosphatase (38-126) U/L Troponin I (0.01-0.034) ng/mL Total Protein (6.3-8.2) g/dL Albumin (3.5-5.0) g/dL Globulin (1.7-4.1) g/dL Albumin/Globulin Ratio (1.0-2.8) TSH (0.47-4.68) uIU/mL Urine RBC 5-10/hpf H (0-5/HPF) Urine WBC 10-30/hpf H (0-5/HPF) Ur Squamous Epith Cells 0-1 /hpf (0-5/HPF) Urine Bacteria Many (>30) H (None) Ur Culture Indicated? Specimen cultured U Opiates 300ng/mL cut Negative (Negative) Ur Oxycodone Screen Negative (Negative) Urine Methadone Screen Negative (Negative) Ur Barbiturates Screen Negative (Negative) U Tricyclic Antidepress Negative (Negative) Ur Phencyclidine Scrn Negative (Negative) Ur Amphetamines Screen Negative (Negative) U Methamphetamines Scrn Negative (Negative) Ur MDMA Scrn (Ecstasy) Negative (Negative) U Benzodiazepines Scrn Negative (Negative) Urine Cocaine Screen Negative (Negative) U Marijuana (THC) Screen Negative (Negative) Point of Care Testing Test Results Negative Urine Dip Bedside Urine Glucose Negative Bedside Urine Bilirubin - Negative Bedside Urine Ketone + 15 Urine Specific [place] 1.015 Bedside Urine Occult Blood +++ Bedside Urine pH 6.0 Bedside Urine Protein - Negative Bedside Urine Urobilinogen - Negative Bedside Urine Nitrite + Positive Bedside Urine Leukocytes ++ [address] scan - chest: Radiologist's Impression: [address] [id number] Scan ReportSigned Patient: Adrianna Neal KMR#: [id number]: 1995Acct:[id number]/Sex: 25 / FDate of Service: 12/01/20Loc: EDAccession Number: [id number] Procedure: CT angio chest PE protocol Ordering Provider: Sarita De Leon D.O. PROCEDURE: CT ANGIO CHEST PE PROTOCOL INDICATIONS: tachycardia, cp, sob, anxiety TECHNIQUE: After the administration of intravenous contrast, 2 mm thick sections acquired from the pulmonary apices to the posterior costophrenic angles. 3-dimensional maximum intensity projection (MIP) coronal and sagittal reformats were then acquired through the thorax. For radiation dose reduction, the following was used: automated exposure control, adjustment of mA and/or kV according to patient size. COMPARISON: None. FINDINGS: Image quality: There is suboptimal opacification of the pulmonary artery with more dense contrast material in the superior vena cava and the aortic, possibly related to deep respiration during the contrast injection Pulmonary arteries: Suboptimal opacification of the pulmonary arteries is seen. No large central pulmonary embolus is identified. Lungs and pleura: Lungs are clear. No pleural effusions or pneumothorax. Central and peripheral airways are patent. Mediastinum: Heart size is normal, without pericardial effusion. No mediastinal or hilar adenopathy. Thoracic aorta is normal in caliber and enhancement. Esophagus is normal in caliber, without hiatal hernia. Bones and chest wall: No suspicious bony lesions. Ribs and thoracic spine appear intact throughout. Thyroid gland appears normal. No axillary or supraclavicular spike opathy. Abdomen: Visualized upper abdominal solid organs appear normal in the early arterial phase of enhancement. IMPRESSION: Suboptimal opacification of the pulmonary arteries. No acute pul monary embolus is identified in the central pulmonary arteries given limitations in evaluation. The lungs are clear. Dictated by: Nemesio Stover M.D. on 12/01/2020 at 20:27 Approved by: Nemesio Stover M.D. on 12/01/2020 at 20:33 [facility] Narrative Medical decision making narrative: Dr downing: Received turned over from Dr De Leon. Her CT scan of the chest was negative for pulmonary embolism. Her labs do indicate a urinary tract infection. I did review the patient's labs and workup up to this point. For my own independent exam. Patient states she is feeling better with regard to her anxiety. She does take depression medications. She was happy to hear that her CT scan was unremarkable. Plan will be is to send her home to continue to take her already prescribed medications. She was given a prescription for antibiotics given the nitrite positive urine. States she has had multiple urinary tract infections in the past. Patient was given return precautions and follow-up instructions. She expressed understanding agreement. Discharge Plan Departure Patient Disposition: Home Clinical Impression: Anxiety, UTI (urinary tract infection) Instructions: DI for Anxiety -- Adult Activity Restrictions/Additional Instructions: Follow-up with your physician this week for recheck if your symptoms have not re solved. Return to the ER for new or worsening symptoms, lightheadedness or passing out, persistent chest pain or pressure, shortness of breath, persistent vomiting, black or bloody stools, new swelling in her extremities or other new or concerning symptoms. Prescriptions: New cephalexin [Keflex] 500 mg capsule 500 mg PO BID Qty: 10 RF: 0 No Action bupropion HCl 150 mg Tablet Extended Release 24 Hr 150 mg PO QAM RF: 0
--- NOTE | 2020-12-01 17:33 | DI.RAD.S_ITS ---
PROCEDURE: XR CHEST 1V INDICATIONS: anxiety TECHNIQUE: One view of the chest was acquired. COMPARISON: [facility], CR, XR CHEST 1V, 12/23/2018, 23:59. FINDINGS: Surgical changes and devices: None. Lungs and pleura: Lungs are clear. No pleural effusions or pneumothorax. Mediastinum: Mediastinal contours appear normal. Heart size is normal. Bones and chest wall: No suspicious bony lesions. Overlying soft tissues appear unremarkable. IMPRESSION: No acute cardiopulmonary disease process. Dictated by: Agnes Bronson MD, PhD on 12/01/2020 at 16:41 Approved by: Agnes Bronson MD, PhD on 12/01/2020 at 16:48
[2020-12-01] MEDS: ALPRAZolam 0.5 MG TABLET PO (17:40)
[2020-12-01] MEDS: ONDANSETRON 4 MG ODT PO (17:40)
[2020-12-01] MEDS: ONDANSETRON 4 MG/2 ML INJ IV (18:21)
[2020-12-01] MEDS: LORazepam 2 MG/ML INJ 0.5 MG IV (18:21)
[2020-12-01] MEDS: SODIUM CHLORIDE 0.9% 1,000 ML 1000 ML IV (18:22)
[2020-12-01 18:35] LABS: Add Manual Diff / Slide Review NO; Basophils Absolute Auto 100 /uL (0-100); Basophils Percent Auto 0.5 % (0-2); Eosinophils Absolute Auto 100 /uL (0-450); Eosinophils Percent Auto 0.7 % (2-4); Hematocrit 43.5 % (36-46); Hemoglobin 14.3 g/dL (12.0-16.0); Lymphocytes Absolute Auto 1400 /uL (1100-4500); Lymphocytes Percent Auto 12.1 % (25-40); Mean Corpuscular HGB Conc 32.8 % (30-36); Mean Corpuscular Hemoglobin 29.8 PG (26-34); Monocytes Absolute Auto 700 /uL (0-900); Monocytes Percent Auto 6.3 % (3-14); Neutrophils Absolute Auto 9000 /uL (1500-7000); Neutrophils Percent Auto 80.4 % (50-75); Platelet Count 267 X10^3/uL (150-400); Red Blood Cell Count 4.78 X10^6/uL (4.0-5.2); Red Cell Distribution Width 14.7 % (11.6-14.8); White Blood Cell Count 11.2 X10^3/uL (4.5-11.0)
[2020-12-01 19:07] LABS: D Dimer 262 ng/mL (<230)
[2020-12-01 19:11] LABS: Alanine Aminotransferase 57 IU/L (<35); Albumin 4.6 g/dL (3.5-5.0); Albumin Globulin Ratio 1.4 (1.0-2.8); Alkaline Phosphatase 121 U/L (38-126); Aspartate Aminotransferase 58 IU/L (14-36); BUN Creatinine Ratio 20.3 (6-22); Bilirubin Total 0.5 mg/dL (0.2-1.3); Blood Urea Nitrogen 14 mg/dL (7-17); Calcium 9.5 mg/dL (8.4-10.2); Carbon Dioxide 24 mmol/L (22-32); Chloride 104 mmol/L (98-107); Estimated Glomerular Filt Rate > 60.0 mL/min (>60); Globulin 3.4 g/dL (1.7-4.1); Glucose 98 mg/dL (70-100); HEMOLYSIS 16 (0-50); Potassium 4.2 mmol/L (3.4-5.1); Sodium 136 mmol/L (137-145)
[2020-12-01 19:14] LABS: UR Morphine/Opiate cutoff 300 Negative (Negative); Ur Creatinine Normal (Normal); Ur Specific Gravity Normal (Normal); Urine Amphetamines Negative (Negative); Urine Barbiturates Negative (Negative); Urine Benzodiazepines Negative (Negative); Urine Cocaine Negative (Negative); Urine MDMA Negative (Negative); Urine Methadone Negative (Negative); Urine Methamphetamines Negative (Negative); Urine Oxycodone Negative (Negative); Urine Phencyclidine Negative (Negative); Urine Tetrahydrocannabinol Negative (Negative); Urine Tricyclic Antidepressant Negative (Negative); Urine pH Normal (Normal)
[2020-12-01 19:19] LABS: RBC Urine 5-10/HPF (0-5/HPF)
[2020-12-01 19:20] LABS: Bacteria Urine Many (>30); Culture Indicated Urine Specimen Cultured; Squamous Epithelial Cell Urine 0-1 /HPF (0-5/HPF); WBC Urine 10-30/HPF (0-5/HPF)
[2020-12-01 19:23] LABS: Troponin I < 0.012 ng/mL (0.01-0.034)
[2020-12-01 19:41] LABS: Thyroid Stimulating Hormone 0.941 uIU/mL (0.47-4.68)
--- NOTE | 2020-12-01 19:51 | DI.CT.S_ITS ---
PROCEDURE: CT ANGIO CHEST PE PROTOCOL INDICATIONS: tachycardia, cp, sob, anxiety TECHNIQUE: After the administration of intravenous contrast, 2 mm thick sections acquired from the pulmonary apices to the posterior costophrenic angles. 3-dimensional maximum intensity projection (MIP) coronal and sagittal reformats were then acquired through the thorax. For radiation dose reduction, the following was used: automated exposure control, adjustment of mA and/or kV according to patient size. COMPARISON: None. FINDINGS: Image quality: There is suboptimal opacification of the pulmonary artery with more dense contrast material in the superior vena cava and the aortic, possibly related to deep respiration during the contrast injection Pulmonary arteries: Suboptimal opacification of the pulmonary arteries is seen. No large central pulmonary embolus is identified. Lungs and pleura: Lungs are clear. No pleural effusions or pneumothorax. Central and peripheral airways are patent. Mediastinum: Heart size is normal, without pericardial effusion. No mediastinal or hilar adenopathy. Thoracic aorta is normal in caliber and enhancement. Esophagus is normal in caliber, without hiatal hernia. Bones and chest wall: No suspicious bony lesions. Ribs and thoracic spine appear intact throughout. Thyroid gland appears normal. No axillary or supraclavicular adenopathy. Abdomen: Visualized upper abdominal solid organs appear normal in the early arterial phase of enhancement. IMPRESSION: Suboptimal opacification of the pulmonary arteries. No acute pulmonary embolus is identified in the central pulmonary arteries given limitations in evaluation. The lungs are clear. Dictated by: Nemesio Stover M.D. on 12/01/2020 at 20:27 Approved by: Nemesio Stover M.D. on 12/01/2020 at 20:33
[2020-12-01] MEDS: cephALEXin 250 MG CAPSULE 500 MG PO (19:56)
[2020-12-01 21:12] VITALS: BP 141/90; PULSE 100; RESP 16; O2SAT 97
== END 2020-12-01 21:13 | disposition home or self-care (01) ==
PROVIDERS: Emergency Medicine; Emergency Provider Emergency Medicine
DX: F41.9 Anxiety disorder, unspecified (principal); N39.0 Urinary tract infection, site not specified; R07.9 Chest pain, unspecified; R00.0 Tachycardia, unspecified; R11.2 Nausea with vomiting, unspecified; R06.02 Shortness of breath
CPT/HCPCS: 36415; 71045; 71275; 80053; 80305; 81003; 81015; 81025; 84443; 84484; 85025; 85379; 87077; 87086; 87186; 93005; 96361; 96374; 96375; 99283; 99284; J2060; J2405; Q9967